=== PATIENT | female | born 1990 | race American Indian/Alaskan Native ===

== ENCOUNTER 2020-12-31 21:24 | Inpatient (IN) | payer MEDICAID ==
[2020-12-31] MEDS ORDERED: ONDANSETRON 4 MG/2 ML INJ IV PRN (23:42)
[2020-12-31] MEDS ORDERED: ePHEDrine SULFATE 50 MG/1 ML INJ IV PRN (23:42)
[2020-12-31] MEDS ORDERED: MINERAL OIL 30 ML ORAL LIQD PO PRN (23:42)
[2020-12-31] MEDS ORDERED: TERBUTALINE 1 MG/1 ML INJ SUB-Q PRN (23:42)
[2020-12-31] MEDS ORDERED: OXYTOCIN DRIP 30 UNITS/500 ML BAG IV SCH (23:45)
[2021-01-01 01:13] LABS: Hematocrit 35.5 % (30.3-42.9); Hemoglobin 11.4 gm/dl (10.1-14.3); Mean Corpuscular HGB Conc 32 % (30-34); Mean Corpuscular Volume 78 fl (79-97); Platelet Count 236 K/mm3 (140-440); Red Blood Count 4.55 M/mm3 (3.65-5.03); Red Cell Distribution Width 17.7 % (13.2-15.2)
[2021-01-01] MEDS: fentaNYL 100 MCG/2 ML INJ IV PRN ×2 (02:41→09:20)
[2021-01-01] MEDS: LACTATED RINGERS 1,000 ML IV SCH ×2 (02:47→10:21)
--- NOTE | 2021-01-01 08:36 | History and Physical Report ---
History of Present Illness Date of examination: 01/01/21 Date of admission: 12/31/20 23:42 Chief complaint: I am having contractions History of present illness: Patient is 30-year-old 3 para 2 who presents with contractions and 39- 2/7 weeks. 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 She is GBS negative. We will admit for labor augment as necessary. AROM when able. Anticipate . Past History Past Medical History: no pertinent history [employer] History: herpes Family/Genetic History: none Social history: single - Obstetrical History Expected Date of Delivery: 01/05/21 Actual Gestation: 39 Week(s) 3 Day(s) : 3 Para: 2 Number of Living Children: 2 Medications and Allergies Allergies Allergy/AdvReac Type Severity Reaction Status Date / Time seafood Allergy Anaphylaxis Uncoded 01/01/21 02:26 Home Medications Medication Instructions Recorded Confirmed Last Taken Type Valtrex PO DAILY 01/01/21 12/31/20 15:00 History Active Meds: Active Medications Ephedrine Sulfate (Ephedrine Sulfate 50 Mg/1 Ml Inj) 10 mg IV Q2M PRN PRN Reason: Hypotension Fentanyl (Fentanyl 100 Mcg/2 Ml Inj) 100 mcg IV Q2H PRN PRN Reason: Pain,Severe (7-10) LABOR PAIN Last Admin: 01/01/21 02:41 Dose: 100 mcg Documented by: Lactated Ringer's (Lactated Ringers) 1,000 mls @ 125 mls/hr IV DIRECT NONI Last Admin: 01/01/21 02:47 Dose: 125 mls/hr Documented by: Oxytocin/Sodium Chloride (Pitocin/Ns 30 Unit/500ml) 30 units in 500 mls @ 40 mls/hr IV TITR NONI; Protocol Lidocaine (Lidocaine (2%) 20 Mg/1 Ml Vial 20 Ml Mdv) 20 ml INFILTRATI ONCE ONE Stop: 01/02/21 01:43 Mineral Oil (Mineral Oil 30 Ml Oral Liqd) 30 ml PO QHS PRN PRN Reason: Constipation Ondansetron HCl (Ondansetron 4 Mg/2 Ml Inj) 4 mg IV Q8H PRN PRN Reason: Nausea And Vomiting Terbutaline Sulfate (Terbutaline 1 Mg/1 Ml Inj) 0.25 mg SUB-Q ONCE PRN PRN Reason: Hyperstimulation/Hypertonicity Review of Systems All systems: negative Breasts: deferred Gastrointestinal: abdominal pain Genitourinary: deferred Rectal Exam: deferred - Vital Signs Vital signs: Vital Signs Pulse BP Pulse Ox 91 H 144/92 99 12/31/20 22:32 12/31/20 22:32 12/31/20 22:32 Temp Pulse Resp BP Pulse Ox 98.2 F 92 H 14 135/85 99 01/01/21 07:25 01/01/21 08:22 01/01/21 07:25 01/01/21 07:25 01/01/21 08:22 - Physical Exam Breasts: Cardiovascular: Regular rate, Normal S1, Normal S2 Lungs: Positive: Clear to auscultation, Normal air movement Abdomen: Positive: normal appearance, soft, normal bowel sounds. Negative: distention, tenderness Genitourinary (Female): Positive: normal external genitalia, normal perenium Vulva: both: normal Vagina: Positive: normal moisture. Negative: discharge Cervix: Negative: lesion, discharge Uterus: Positive: normal size, normal contour Adnexa: both: normal Anus/Rectum: Positive: normal perianal skin, heme negative. Negative: rectal mass, hemorrhoids Extremities: Deep Tendon Reflex Grade: Normal +2 - Obstetrical FHR: auscultation normal Cervical Dilatation: 5 Cervical Effacement Percentage: 60 station: -2 Uterine Tone Measurement Phase: Contraction Uterine Contraction Intensity: Moderate Results Result Diagrams: 01/01/21 00:46 Abnormal lab results 01/01/21 Range/Units 00:46 MCV 78 L (79-97) fl MCH 25 L (28-32) pg RDW 17.7 H (13.2-15.2) % All other labs normal. Assessment and Plan IUP at 39-3/7 weeks in labor. Will admit for the same AROM when able. Patient may have epidural. Anticipate .
--- NOTE | 2021-01-01 10:48 | Anesthesia Consultation ---
Anesthesia Consult and Med Hx Date of service: 01/01/21 - Airway Anesthetic Teeth Evaluation: Good ROM Head & Neck: Adequate Mental/Hyoid Distance: Adequate Mallampati Class: Class II Intubation Access Assessment: Probably Good - Pulmonary Exam CTA: Yes - Cardiac Exam Cardiac Exam: RRR - Pre-Operative Health Status ASA Pre-Surgery Classification: ASA3 Proposed Anesthetic Plan: Epidural - Pulmonary Hx Asthma: Yes (last attack as a child) COPD: No Hx Pneumonia: No - Cardiovascular System Hx Hypertension: Yes (PIH 2018 and current) - Central Nervous System Hx Seizures: No Hx Psychiatric Problems: No - Endocrine Hx Renal Disease: No Hx End Stage Renal Disease: No Hx Hypothyroidism: No Hx Hyperthyroidism: No - Hematic Hx Anemia: No Hx Sickle Cell Disease: No - Other Systems Hx Alcohol Use: No Hx Obesity: Yes
--- NOTE | 2021-01-01 11:28 | Progress Note ---
Labor Epidural - Labor Epidural Start Time: 11:02 Stop Time: 11:11 Performed by:: JEAN CARLOS VALLEJO Procedure: Patient is requesting epidural for labor pain. H&P, and labs reviewed. Procedure explained, questions answered, consent obtained. Patient in sitting position with blood pressure cuff and pulse ox on and working. Timeout performed immediately before start of procedure. Sterile chlorahexadine 0.5% prep/drape. 3 mL 1% lidocaine skin wheal at L[3]-L[4]. 18-gauge Vigour.iotead epidural needle advanced to [id number] with saline at [7] cm. Epidural catheter advanced to [12] cm, negative aspiration for blood and csf, negative test dose 3 ml 1.5% lidocaine with epinephrine. Epidural dexmedetomidine [30] mcg administered. Sterile steri-strips and tegaderm applied, followed by tape reinforcement. Patient tolerated procedure well. Mello DICKEY
[2021-01-01] MEDS ORDERED: fentaNYL-BUPIV 2 MCG/ML-0.125% 200 MCG/100 ML BAG EPIDURAL SCH (11:30)
[2021-01-01] MEDS ORDERED: ePHEDrine SULFATE 50 MG/1 ML INJ IV PRN (11:30)
[2021-01-01] MEDS ORDERED: NALOXONE 2 MG/2 ML INJ IV PRN (11:30)
--- NOTE | 2021-01-01 13:59 | Procedure Note ---
OB Delivery Note - Delivery Date of Delivery: 01/01/21 Surgeon: OVIDIO LARSON Estimated blood loss: other (250cc) - Vaginal Delivery presentation: vertex Delivery position: OA Intrapartum events: meconium Delivery augmentation: rupture of membranes, pitocin Delivery monitor: external FHT, external uterine Route of delivery: Delivery placenta: spontaneous Delivery cord: 3 umbilical vessels Episiotomy: none Delivery laceration: none Anesthesia: epidural Delivery comments: Viable female delivered over intact perineum at 1327 with Apgars 8 and 9 and meconium fluid. Weight 8 pounds 12 ounces /3974 g. Infant had spontaneous cry and was suctioned immediately after delivery. Infant was placed on maternal abdomen. Cord was clamped and cut when done pulsating. She was then handed to the waiting NICU personnel. Placenta was delivered spontaneously and intact with a three-vessel cord. There were no lacerations noted. There was excellent hemostasis. The patient tolerated procedure well. - A at 1 minute: 8 at 5 minutes: 9 Infant Gender: Female (3974 grams/8 pounds 12 ounces)
[2021-01-01] MEDS ORDERED: HYDROcodone/ACETAMINOPHEN 5-325 MG TAB PO PRN (15:38)
[2021-01-01] MEDS ORDERED: PROMETHAZINE 25 MG TAB PO PRN (15:38)
[2021-01-01] MEDS ORDERED: WITCH HAZEL/ GLYCERIN PAD TP PRN (15:38)
[2021-01-01] MEDS ORDERED: ONDANSETRON 4 MG/2 ML INJ IV PRN (15:38)
[2021-01-01] MEDS ORDERED: diphenhydrAMINE 25 MG CAP PO PRN (15:38)
[2021-01-01] MEDS ORDERED: MAGNESIUM HYDROXIDE (MOM) ORAL LIQD UDC PO PRN (15:38)
[2021-01-01] MEDS ORDERED: ACETAMINOPHEN 325 MG TAB PO PRN (15:38)
[2021-01-01] MEDS ORDERED: PROMETHAZINE 25 MG RECT SUPP PR PRN (15:38)
[2021-01-01] MEDS ORDERED: LANOLIN/ZINC/DIMETHICONE (LANSINOH) 7 GM TP PRN (15:38)
[2021-01-01] MEDS: IBUPROFEN 600 MG TAB PO SCH (21:34)
[2021-01-01] MEDS: DOCUSATE SODIUM 100 MG CAP PO SCH (21:34)
[2021-01-02] MEDS ORDERED: LIDOCAINE (2%) 20 MG/1 ML VIAL 20 ML MDV INFILTRATI ONE (01:42)
[2021-01-02 05:34] LABS: Hematocrit 30.1 % (30.3-42.9); Hemoglobin 9.9 gm/dl (10.1-14.3)
--- NOTE | 2021-01-02 10:32 | Progress Note ---
Assessment and Plan PPD 1 s/p . doing well. Will plan for discharge on today if baby is able to be discharged. Subjective - Subjective Date of service: 01/02/21 Principal diagnosis: Spontaneous vaginal delivery Interval history: Patient is 30-year-old 3 para 2 who presents with contractions and 39- 2/7 weeks. 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 She is GBS negative. We will admit for labor augment as necessary. AROM when able. Anticipate . Patient reports: appetite normal, voiding normally, pain well controlled, flatus, ambulating normally [place]: doing well Objective - Vital Signs Latest vital signs: Vital Signs Temp Pulse Resp BP BP Pulse Ox 01/02/21 08:16 98.2 F 90 20 138/70 99 01/02/21 01:18 98.2 F 101 H 20 114/70 100 01/01/21 17:36 98.6 F 101 H 18 148/88 100 01/01/21 16:32 94 H 142/66 01/01/21 16:30 96 H 98 01/01/21 16:25 77 98 01/01/21 16:20 84 99 01/01/21 16:18 86 160/97 01/01/21 16:15 80 100 01/01/21 16:10 82 99 01/01/21 16:05 91 H 98 01/01/21 16:02 79 150/73 01/01/21 16:00 89 98 01/01/21 15:55 82 99 01/01/21 15:50 87 99 01/01/21 15:47 93 H 154/77 01/01/21 15:45 70 100 01/01/21 15:40 93 H 100 01/01/21 15:35 72 99 01/01/21 15:32 70 149/85 01/01/21 15:30 72 99 01/01/21 15:25 72 99 01/01/21 15:20 78 100 01/01/21 15:17 96 H 140/92 01/01/21 15:15 91 H 88 01/01/21 15:14 108 H 93 01/01/21 15:10 101 H 100 01/01/21 15:05 74 99 01/01/21 15:02 68 144/94 01/01/21 15:00 83 98 01/01/21 14:55 102 H 100 01/01/21 14:53 96 H 93 01/01/21 14:50 73 99 01/01/21 14:47 94 H 140/96 01/01/21 14:45 102 H 96 01/01/21 14:43 75 93 01/01/21 14:40 83 100 01/01/21 14:35 75 100 01/01/21 14:32 88 140/96 01/01/21 14:30 77 98 01/01/21 14:25 72 98 01/01/21 14:20 73 97 01/01/21 14:17 96 H 135/64 01/01/21 14:15 99 H 86 01/01/21 14:10 86 99 01/01/21 14:05 99 H 99 01/01/21 14:02 147/70 01/01/21 14:00 93 H 98 01/01/21 13:55 103 H 100 01/01/21 13:50 106 H 100 01/01/21 13:47 104 H 147/64 01/01/21 13:45 126 H 99 01/01/21 13:40 108 H 100 01/01/21 13:35 98.2 F 105 H 100 01/01/21 13:32 105 H 141/69 01/01/21 13:30 113 H 100 01/01/21 13:25 110 H 99 01/01/21 13:20 102 H 98 01/01/21 13:15 112 H 99 01/01/21 13:10 112 H 100 01/01/21 13:05 97 H 100 01/01/21 13:00 73 100 01/01/21 12:55 75 152/72 100 01/01/21 12:50 83 98 01/01/21 12:45 88 98 01/01/21 12:40 91 H 100 01/01/21 12:39 86 145/85 01/01/21 12:35 83 99 01/01/21 12:31 97 H 94 01/01/21 12:30 97 H 96 01/01/21 12:25 83 98 01/01/21 12:20 77 100 01/01/21 12:15 88 98 01/01/21 12:10 94 H 150/74 98 01/01/21 12:06 58 L 47 L 01/01/21 12:05 88 97 01/01/21 12:00 91 H 95 01/01/21 11:55 95 H 99 01/01/21 11:54 96 H 144/81 01/01/21 11:52 100 H 138/65 01/01/21 11:50 107 H 98 01/01/21 11:49 96 H 139/63 01/01/21 11:47 98 H 138/65 01/01/21 11:46 97 H 136/63 01/01/21 11:45 99 H 98 01/01/21 11:43 99 H 145/83 01/01/21 11:42 90 141/73 01/01/21 11:40 96 H 98 01/01/21 11:35 99 H 100 01/01/21 11:33 100 H 158/77 01/01/21 11:32 118 H 166/111 01/01/21 11:30 120 H 99 01/01/21 11:28 118 H 212/136 01/01/21 11:26 60 129/101 01/01/21 11:25 122 H 100 01/01/21 11:20 95 H 154/82 100 01/01/21 11:18 106 H 139/95 01/01/21 11:15 112 H 145/93 100 01/01/21 11:12 120 H 192/95 01/01/21 11:10 114 H 99 01/01/21 11:05 112 H 100 01/01/21 11:00 116 H 99 01/01/21 10:55 111 H 99 01/01/21 10:50 107 H 100 01/01/21 10:45 109 H 98 01/01/21 10:40 88 96 01/01/21 10:37 100 H 93 01/01/21 10:35 86 99 Intake and Output 01/01/21 01/02/21 01/02/21 22:59 06:59 14:59 Intake Total 481 Output Total 500 1000 Balance -500 -519 Intake: Oral 481 Output: Urine 500 1000 Void 500 1000 Other: Total, Intake Amount 121 Total, Output Amount 500 400 - Exam Breasts: Present: deferred Cardiovascular: Present: Regular rate, Normal S1, Normal S2 Lungs: Present: Normal air movement Abdomen: Present: normal appearance, soft, normal bowel sounds Uterus: Present: normal, firm Extremities: Present: normal - Labs Labs: Abnormal lab results 01/02/21 Range/Units 04:12 Hgb 9.9 L (10.1-14.3) gm/dl Hct 30.1 L (30.3-42.9) %
--- NOTE | 2021-01-02 10:33 | Discharge Summary ---
Providers - Providers Date of Admission: 12/31/20 23:42 Date of discharge: 01/02/21 Attending physician: OVIDIO LARSON Primary care physician: OVIDIO LARSON Hospitalization Reason for admission: active labor Delivery: Episiotomy: none Other procedures: none complications: none Discharge diagnosis: IUP at term delivered [place] baby: female Hospital course: unremarkable Condition at discharge: Good Disposition: DC-01 TO HOME OR SELFCARE Plan - Discharge Medications Prescriptions: Ibuprofen [Motrin] 800 mg PO Q8HR PRN #40 tablet PRN Reason: Pain, Mild (1-3) HYDROcodone/APAP 5-325 [[place] 5/325] 1 each PO Q6HR PRN #15 tablet PRN Reason: Pain - Provider Discharge Summary Activity: routine, no sex for 6 weeks, no heavy lifting 4 weeks, no strenuous exercise Diet: routine Instructions: routine Additional instructions: [] Smoking cessation referral if applicable(refer to patient education folder for contact #) [] Refer to [facility]'s [facility] Booklet Call your doctor immediately for: * Fever > 100.5 * Heavy vaginal bleeding ( >1 pad per hour) * Severe persistent headache * Shortness of breath * Reddened, hot, painful area to leg or breast * Drainage or odor from incision. * Keep incision clean and dry at all times and follow doctor's instructions regarding bathing/showering - Follow up plan Follow up: OVIDIO LARSON MD [Primary Care Provider] - 14 Days
[2021-01-02] MEDS: IBUPROFEN 600 MG TAB PO SCH ×2 (12:23→18:25)
[2021-01-02] MEDS: DOCUSATE SODIUM 100 MG CAP PO SCH ×2 (12:23→21:56)
--- NOTE | 2021-01-02 18:53 | Post Anesthesia Evaluation ---
- Post Anesthesia Evaluation Patient Participated: Yes Airway Patent: Yes Stable Respiratory Function: Yes Nausea/Vomiting: No Temp > 96.8F: Yes Pain Manageable: Yes Adequeate Hydration: Yes Anesthesia Complications: No Block Receding Appropriately: Yes
[2021-01-03] MEDS: IBUPROFEN 600 MG TAB PO SCH (04:29)
[2021-01-03 08:48] VITALS: BP 140/86
== END 2021-01-03 10:50 | disposition home or self-care (01) | DRG 775 ==
LOC: TRG 21:24 → APU 21:41 → TRG 23:42 → LD 23:42 → OB 01-01 17:07
PROVIDERS: ADMIT Obstetrics & Gynecology; ATTEND Obstetrics & Gynecology
PROC: 10E0XZZ Delivery of Products of Conception, External Approach (ICD-10-PCS; principal; 2021-01-01)
PROC: 10907ZC Drainage of Amniotic Fluid, Therapeutic from Products of Conception, Via Natural or Artificial Opening (ICD-10-PCS; 2021-01-01)
PROC: 3E0R3BZ Introduction of Anesthetic Agent into Spinal Canal, Percutaneous Approach (ICD-10-PCS; 2021-01-01)
PROC: 00HU33Z Insertion of Infusion Device into Spinal Canal, Percutaneous Approach (ICD-10-PCS; 2021-01-01)
DX: O77.0 Labor and delivery complicated by meconium in amniotic fluid (principal); Z37.0 Single live birth; O99.214 Obesity complicating childbirth; E66.9 Obesity, unspecified; Z3A.39 39 weeks gestation of pregnancy; Z20.822 Contact with and (suspected) exposure to COVID-19; O16.4 Unspecified maternal hypertension, complicating childbirth; Z91.013 Allergy to seafood
CPT/HCPCS: 36415; 59025; 85014; 85018; 85027; 86592; 86850; 86900; 86901; G0378; J3010; J7120; U0003